=== PATIENT | male | born 1980 | race American Indian/Alaskan Native ===

== ENCOUNTER 2018-04-05 09:24 | Emergency (ER) | payer SELFPAY ==
[2018-04-05 09:34] VITALS: BP 150/88
--- NOTE | 2018-04-05 11:16 | Emergency Department Report ---
Upper Extremity - HPI Chief Complaint: Back Pain/Injury Stated Complaint: CHEST /BACK/SHOULDER PAIN Time Seen by Provider: 04/05/18 11:07 Upper Extremity: Right Shoulder (pain and limited movement.) Occurred When: 3 Days Mechanism: Other (() Severity: severe (03/27) Symptoms: Yes Pain with Movement (right shoulder), Yes Limited Range of Movement , No Deformity, No Numbness, No Weakness, No Swelling, No Bruising/Ecchymosis, No Laceration or Abrasion Other History: This is a 37-year-old male here presents emergency room with complain of right shoulder pain and pain to his right upper back that radiated into his right shoulder and sometimes is left shoulder. He said his right shoulder is worse. Denies any nausea or vomiting. Denies any fever or chills. Denies any neck pain or stiffness. Denies any fever or chills. Denies any shortness of breath or chest pain. He said [id number] medication did not help and he had not had any problem with his shoulder in the past. Pain is not of the tendon achy. Pain is worse with movement and no alleviating factor. He reports he thinks it is from him lifting heavy objects last week. ED Review of Systems ROS: Stated complaint: CHEST /BACK/SHOULDER PAIN Other details as noted in HPI Constitutional: denies: chills, fever Eyes: denies: eye pain, eye discharge, vision change ENT: denies: ear pain, throat pain, congestion Respiratory: denies: cough, shortness of breath, SOB with exertion, SOB at rest , stridor, wheezing Cardiovascular: denies: chest pain, palpitations Gastrointestinal: denies: nausea, vomiting Musculoskeletal: arthralgia. denies: back pain, joint swelling, myalgia Skin: denies: rash, lesions, pruritus Neurological: denies: headache, weakness, numbness, paresthesias, abnormal gait Psychiatric: denies: anxiety, depression ED Past Medical Hx - Past Medical History Previous Medical History?: No - Surgical History Past Surgical History?: No - Family History Family history: hypertension - Social History Smoking Status: Current Every Day Smoker Substance Use Type: None - Medications Home Medications: Home Medications Medication Instructions Recorded Confirmed Last Taken Type traMADol [Ultram 50 MG tab] 50 mg PO Q6HR PRN #20 tablet 04/05/18 Unknown Rx Upper Extremity Exam - Exam General: Vital signs noted. No distress. Alert and acting appropriately. Is a 37-year-old male well-nourished well-developed in no acute distress. Head and Torso: No HEENT Abnormality, No Neck Tenderness, No Chest/Lungs Abnormality, No Abdominal Tenderness, No Back Tenderness Shoulder Exam: Yes Shoulder Tenderness (minimal tenderness to right glenohumeral joint), Yes Normal Range of Motion in Shoulder (range of motion to right shoulder but patient reports pain with range of motion.), No Clavicle Tenderness, No Shoulder Deformity, No AC Joint Tenderness Arm Exam: No Arm/Humerus Tenderness, No Arm Deformity Elbow: Yes Normal Range of Motion in Elbow, No Elbow Tenderness, No Elbow Deformity Forearm: No Forearm Tenderness, No Forearm Deformity, No Pain with Pronation, No Pain with Supination Wrist: Yes Normal ROM in Wrist, No Wrist Tenderness, No Wrist Deformity, No Snuffbox Tenderness, No Pain with Axial Thumb Compression Hand: Yes Normal ROM in Digit(s), No Hand Tenderness, No Hand Deformity, No Digit Tenderness, No Digit(s) Deformity, No Tendon Dysfunction CMS Exam: Yes Normal Distal Pulses, Yes Normal Capillary Refill, Yes Normal Distal Sensation, No Broken Skin ED Course Vital Signs 04/05/18 09:31 Temperature 98.9 F Pulse Rate 82 Respiratory 16 Rate Blood Pressure 150/88 O2 Sat by Pulse 99 Oximetry - Reevaluation(s) Reevaluation #1: 04/05/18 13:08 Patient received Decadron 10 mg IM and Toradol 60 mg IM in emergency room which relieved his pain. ED Medical Decision Making - Radiology Data Radiology results: report reviewed X-ray of shoulders was dictated by the radiologist and report reviewed by myself. Please see detailed below Findings [facility] [address] [place] [address] XRay Report Signed Patient: ANTWAN WATTS MR#: [id number] : 1980 Acct:[id number] Age/Sex: 37 / M ADM Date: 04/05/18 Loc: ED Attending Dr: Ordering Physician: REJI STARKEY Date of Service: 04/05/18 Procedure(s): XR shoulder BILAT 2+V Accession Number(s): [id number] cc: REJI STARKEY Fluoro Time In Minutes: BILATERAL SHOULDERS, 3 VIEWS History: Right shoulder injury. Findings: Normal bone mineralization. No acute osseous findings or joint pathology is demonstrated. The soft tissues are unremarkable. Impression: Bilateral shoulders within normal limits. Transcribed By: TTR Dictated By: AVRIL VICKERS JR, MD Electronically Authenticated By: AVRIL VICKERS JR, MD Signed Date/Time: 04/05/181158 DD/ 57 TD/TT: 04/05/18 115 - Medical Decision Making This is 37-year-old male presents to the emergency room complaining of pain in shoulders and upper back radiating to his arms. He reports that he was lifting heavy object that he noticed that after a few days he started having neck pain. Diagnostics: X-ray of bilateral shoulder with negative findings. These refer to detailed report. Assessment/plan 1: Arthralgia multiple sites-x-ray negative-this given Toradol 6 mg IM and Decadron 30 mg IM in emergency room for pain initially with this pain. 2: Shoulder strain-patient follow-up with orthopedic doctor Patient educated on his x-ray results, pain medication, diagnosis and treatment plan increase in agreement. [facility] to [facility] him and that he needs to follow-up with orthopedic doctor if he still continued to have pain to shoulders. Discharge home in stable condition, pain is controlled. He is given prescription for Ultram and to follow-up with orthopedic in 2 days - Differential Diagnosis FX VS dislocation, rotator cuff injury, MSK pain Critical care attestation.: If time is entered above; I have spent that time in minutes in the direct care of this critically ill patient, excluding procedure time. ED Disposition Clinical Impression: Arthralgia of multiple sites Muscle strain of shoulder region Qualifiers: Encounter type: initial encounter Laterality: unspecified laterality Qualified Code(s): S46.919A - Strain of unspecified muscle, fascia and tendon at shoulder and upper arm level, unspecified arm, initial encounter Disposition: TO HOME OR SELFCARE Is pt being admited?: No Does the pt Need Aspirin: No Condition: Stable Instructions: Muscle Strain (ED), Arthralgia (ED), [facility] (ED) Additional Instructions: Follow-up with orthopedics as instructed for shoulder pain. See Discharge ejection or ice therapy Do not drive or operate heavy machines while taking Ultram as this medication causes drowsiness. He can return to the emergency room if your condition worsens. Referrals: TOM ARREOLA MD [Staff Physician] - 04/07/18 [facility] [Outside] - 04/07/18 PRIMARY MD MEDARDO [Primary Care Provider] - 04/07/18 Forms: Work/School Release Form(ED)
[2018-04-05] MEDS ORDERED: DECADRON IM STA (11:18)
[2018-04-05] MEDS ORDERED: TORADOL IM ONE (11:20)
--- NOTE | 2018-04-05 12:00 | XRay Report ---
BILATERAL SHOULDERS, 3 VIEWS History: Right shoulder injury. Findings: Normal bone mineralization. No acute osseous findings or joint pathology is demonstrated. The soft tissues are unremarkable. Impression: Bilateral shoulders within normal limits.
== END 2018-04-05 13:21 | disposition home or self-care (01) ==
LOC: ED 09:24
DX: S46.919A Strain of unspecified muscle, fascia and tendon at shoulder and upper arm level, unspecified arm, initial encounter (principal); M54.89 Other dorsalgia; F17.200 Nicotine dependence, unspecified, uncomplicated; X58.XXXA Exposure to other specified factors, initial encounter; Y93.89 Activity, other specified; Y99.8 Other external cause status; Y92.89 Other specified places as the place of occurrence of the external cause
CPT/HCPCS: 73030; 96372; 99283; J1100; J1885